=== PATIENT | male | born 1995 | race Caucasian/White ===

== ENCOUNTER 2020-06-27 21:18 | Emergency (ER) | payer BC ==
[2020-06-27 21:28] VITALS: RESP 16
[2020-06-27 22:12] LABS: Appearance,Urine Clear (Clear); Bilirubin,Urine Negative (Negative); Blood,Urine Negative (Negative); Color,Urine Yellow; Glucose,Urine (UA) Negative (Negative); Ketones,Urine Negative (Negative); Leukocyte Esterase,Urine Negative (Negative); Nitrite,Urine Negative (Negative); PH, Urine 5.5 (5.0-8.0); Protein,Urine Negative (Negative); Specific Gravity,Urine 1.019 (1.001-1.035); Urobilinogen,Urine <2.0 mg/dL (<2.0)
--- NOTE | 2020-06-27 22:35 | US ---
EXAMINATION TYPE: US kidneys/renal and bladder DATE OF EXAM: 06/27/2020 COMPARISON: NONE CLINICAL HISTORY: left flank pain, left testicle pain. Right flank pain EXAM MEASUREMENTS: Right Kidney: 11.8 x 4.6 x 4.9 cm Left Kidney: 11.6 x 5.1 x 4.8 cm Right Kidney: wnl Left Kidney: wnl Bladder: Pt voided just prior to exam Incidental enlarged spleen= 16.2 cm . IMPRESSION: No evidence of renal mass or obstruction. Splenomegaly.
--- NOTE | 2020-06-27 22:37 | US ---
EXAMINATION TYPE: US scrotum with doppler. Grayscale and color Doppler Duplex imaging performed of t he scrotum. DATE OF EXAM: 06/27/2020 COMPARISON: NONE CLINICAL HISTORY: left sided pain. Left testicle pain x 3 days EXAM MEASUREMENTS: TESTICLES: Right Testicle: 5.2 x 2.4 x 3.6 cm Left Testicle: 4.9 x 2.4 x 3.9 cm EPIDIDYMIS HEAD: Right Epididymis: 0.8 cm Left Epididymis: 0.9 cm Doppler performed to assess for testicular vascularity; good bilateral color flow and waveforms are s een. There is no evidence of testicular torsion. Presence of hydroceles: No Presence of varicoceles: Yes, left side IMPRESSION: There is left-sided varicocele. No definite no evidence of testicular torsion or mass. No free fluid.
--- NOTE | 2020-06-27 22:41 | ED ---
Male Urogenital HPI - General Chief complaint: Urogenital Stated complaint: Groin Pain Time Seen by Provider: 06/27/20 21:31 Source: patient Mode of arrival: ambulatory Limitations: no limitations - History of Present Illness Initial comments: 24yo male presenting for cc of left testicular pain. patient states he has had left testicular pain x 1 week on an off. Pain increased x 3 days. Notes some mild swelling. no redness, no pain with urination, no concern for STI in manager terminal monogamous relationship. Denies abdominal pain, admits to some left flank pain today. Denies fevers, or additional complaints. Patient appears wel nontoxic in no acute distress on arrival. - Related Data Allergies Allergy/AdvReac Type Severity Reaction Status Date / Time No Known Allergies Allergy Verified 06/27/20 21:28 Review of Systems ROS Statement: Those systems with pertinent positive or pertinent negative responses have been documented in the HPI. ROS Other: All systems not noted in ROS Statement are negative. Past Medical History Past Medical History: No Reported History History of Any Multi-Drug Resistant Organisms: None Reported Past Surgical History: Orthopedic Surgery Additional Past Surgical History / Comment(s): shoulder, eye Past Psychological History: No Psychological Hx Reported Smoking Status: Vaper Past Alcohol Use History: Rare Past Drug Use History: None Reported General Exam - General Exam Comments Initial Comments: General: The patient is awake and alert, in no distress Eye: Pupils are equal, round and reactive to light, extra-ocular movements are intact. No nystagmus. There is normal conjunctiva bilaterally. No signs of icterus. Cardiovascular: There is a regular rate and rhythm. No murmur, rub or gallop is appreciated. Respiratory: Lungs are clear to auscultation, respirations are non-labored, breath sounds are equal. No wheezes, stridor, rales, or rhonchi. Gastrointestinal: Soft, non-distended, non-tender abdomen without masses or organomegaly noted. No LUQ pain. There is no rebound or guarding present. : mild left testicular swelling, no epididymal pain, vertical lie, no inguinal hernia appreciated, cremestaric reflex intact b/l Musculoskeletal: Normal ROM, no tenderness. Strength 5/5. Sensation intact. Radial pulses equal bilaterally 2+. Neurological: A&O x 3. CN II-XII intact grossly, There are no obvious motor or sensory deficits. Coordination appears grossly intact. Speech is normal. Skin: Skin is warm and dry and no rashes or lesions are noted. Psychiatric: Cooperative, appropriate mood & affect, normal judgment. Limitations: no limitations Course Vital Signs 06/27/20 06/27/20 21:22 22:45 Temperature 97.5 F L 98.0 F Pulse Rate 69 72 Respiratory 16 16 Rate Blood Pressure 146/87 136/82 O2 Sat by Pulse 99 98 Oximetry Medical Decision Making - Medical Decision Making Incidental findings large spleen. No LUQ pain. Discussed findings and importance of f/u with PCP. Patient has varicocele left sided. Patient UA unremarkable. patient has no additional complaints. Patient case dsicdussed with Dr. Michel who is agreeable to discharge/care plan. - Lab Data Lab Results 06/27/20 Range/Units 21:55 Urine Color Yellow Urine Appearance Clear (Clear) Urine pH 5.5 (5.0-8.0) Ur Specific [place] 1.019 (1.001-1.035) Urine Protein Negative (Negative) Urine Glucose (UA) Negative (Negative) Urine Ketones Negative (Negative) Urine Blood Negative (Negative) Urine Nitrite Negative (Negative) Urine Bilirubin Negative (Negative) Urine Urobilinogen <2.0 (<2.0) mg/dL Ur Leukocyte Esterase Negative (Negative) Disposition Clinical Impression: Spleen enlarged, Left varicocele Disposition: HOME SELF-CARE Condition: Good Instructions (If sedation given, give patient instructions): Varicocele (ED), Testicle Pain (ED) Additional Instructions: Please use medication as discussed. Please follow-up with family doctor in the next 2 days , recommend follow-up with urology! Please return to emergency room if the symptoms increase or worsen or for any other concerns. Is patient prescribed a controlled substance at d/c from ED?: No Referrals: None,Stated [Primary Care Provider] - 1-2 days Ryan Velazquez MD [STAFF PHYSICIAN] - 1-2 days Time of Disposition: 22:57
[2020-06-27 23:07] VITALS: BP 136/82; PULSE 72; TEMP 98
== END 2020-06-27 23:00 | disposition home or self-care (01) ==
LOC: EC 21:18
DX: I86.1 Scrotal varices (principal); R16.1 Splenomegaly, not elsewhere classified; N50.812 Left testicular pain; F17.290 Nicotine dependence, other tobacco product, uncomplicated
CPT/HCPCS: 76770; 76870; 81003; 93975; 99284

== ENCOUNTER → 2020-07-14 | Outpatient (CLI) | payer BC ==
--- NOTE | 2020-07-14 23:01 | CT ---
EXAMINATION TYPE: CT abdomen pelvis wo con DATE OF EXAM: 07/14/2020 COMPARISON: None INDICATION: Left sided flank pain and testicular pain. DLP: 541.4 mGycm, Automated exposure control for dose reduction was used. CONTRAST: 0 mL of Isovue 300. Study performed without Oral Contrast TECHNIQUE: Axial images were obtained from above the diaphragm to the pubic rami in the axial plane a t 5 mm thick sections. Reconstructed images are reviewed on the computer in the coronal plane. FINDINGS: Limited CT sections are obtained the lung bases. The lung bases are clear. CT ABDOMEN: Liver: Normal Spleen: Normal Pancreas: Normal Adrenal glands: The adrenal glands are normal. Gallbladder: Not identified. Kidneys: No masses are evident. No hydronephrosis is present. No cysts are present. Delayed images were obtained through the kidneys, which remain unremarkable. Aorta: Vascular calcification is within the aorta. Inferior vena cava: Normal. CT PELVIS: Loops of bowel within the abdomen and pelvis are normal. The study is without oral contrast limit ing bowel evaluation. Appendix: Normal as visualized. Urinary bladder: Decompressed with limited evaluation. Genitourinary structures: Prostate is normal Osseous structures: No suspicious lytic or sclerotic lesions. IMPRESSIONS: 1. 1. Normal CT abdomen pelvis. No renal or ureteral stones.
== END | disposition home or self-care (01) ==
LOC: RADCTMAIN 17:03
PROVIDERS: ATTEND Urology
DX: R10.9 Unspecified abdominal pain (principal)
CPT/HCPCS: 74176